=== PATIENT | female | born 1980 | race Caucasian/White ===

== ENCOUNTER → 2016-04-27 | Outpatient (CLI) | payer BC ==
[~2016-04-27] MED LIST: IBUP80TA PO; PERCOCET PO; VITAPRTA PO
--- NOTE | 2016-04-29 11:34 | REP ---
Pain after trauma. Four views of the third digit of the right hand show a fracture of the distal phalanx with associated soft tissue swelling. Signed by Darin Zabala DO 04/29/2016 11:54 A
== END ==
LOC: M ADAMS 13:31
PROVIDERS: ATTEND Physician Assistant Medical
DX: S60.031A Contusion of right middle finger without damage to nail, initial encounter (principal); X58.XXXA Exposure to other specified factors, initial encounter; Y92.89 Other specified places as the place of occurrence of the external cause; Y93.89 Activity, other specified; Y99.8 Other external cause status

== ENCOUNTER 2016-08-31 08:07 | Day surgery (SDC) | payer BC ==
[~2016-08-31] VITALS: Ht 160 cm; Wt 77.3 kg
[2016-08-31] MEDS ORDERED: MORPHINE 4 MG/ML 1ML SYRINGE IV ONE ×2 (08:45→09:30)
[2016-08-31] MEDS ORDERED: ONDANSETRON 4MG/2ML VIAL (J2405) IV ONE (08:45)
[2016-08-31 09:01] LABS: BASO % 0.4 % (0.0-1.0); EOS % 0.5 % (0.0-3.0); LARGE UNSTAINED CELL # 0.2 K/mm3 (0.0-0.4); LARGE UNSTAINED CELL % 1.6 % (0.0-4.0); LYMPH # 1.9 K/mm3 (1.5-4.5); LYMPH % 17.3 % (24.0-44.0); MEAN CORPUSCULAR HEMOGLOBIN 36.7 pg (27.0-33.0); MEAN CORPUSCULAR HGB CONC 34.3 g/dl (32.0-36.5); MONO # 0.5 K/mm3 (0.0-0.8); MONO % 4.3 % (0.0-5.0); NEUTROPHILS # 8.2 K/mm3 (1.8-7.7); NEUTROPHILS % 75.8 % (36.0-66.0); PLATELET COUNT, AUTOMATED 246 k/mm3 (150-450); RED CELL DISTRIBUTION WIDTH 12.5 % (11.5-14.5); WHITE BLOOD COUNT 10.9 K/mm3 (4.0-10.0)
[2016-08-31 09:18] LABS: ANION GAP 10 MEQ/L (8-16); BLOOD UREA NITROGEN 4 MG/DL (7-18); CALCIUM LEVEL 8.2 MG/DL (8.5-10.1); CARBON DIOXIDE LEVEL 22 MEQ/L (21-32); CHLORIDE LEVEL 102 MEQ/L (98-107); CREATININE FOR GFR 0.58 MG/DL (0.55-1.02); GLOMERULAR FILTRATION RATE > 60.0 (>60); GLUCOSE, FASTING 85 MG/DL (70-105); POTASSIUM SERUM 4.1 MEQ/L (3.5-5.1); SODIUM LEVEL 134 MEQ/L (136-145)
[2016-08-31] MEDS ORDERED: VITMTA PO (09:18)
--- NOTE | 2016-08-31 09:57 | REP ---
RIGHT ANKLE, FOUR VIEWS: HISTORY: Trauma. There is a fracture/dislocation. There are fractures of the medial and lateral malleolus. There is lateral dislocation of the talus with respect to the tibia and fibula. Soft tissue swelling is present. IMPRESSION: Fracture/dislocation as described above. Signed by Akin Rocha MD 08/31/2016 10:22 A
[2016-08-31 10:26] LABS: CONTROL LINE HCG INT CTR LINE PRESENT
[2016-08-31] MEDS ORDERED: MORPHINE 2 MG/ML 1ML SYRINGE IV ONE (10:45)
--- NOTE | 2016-08-31 10:45 | REP ---
AP, LATERAL RIGHT ANKLE, TWO VIEWS: HISTORY: Postreduction. COMPARISON: 8:42 a.m. 08/31/2016 An overlying metal splint is present. There is a fracture/dislocation. There are fractures of the medial and lateral malleoli. There is lateral subluxation of the talus with respect to the tibia. IMPRESSION: Fracture dislocation as described above. Signed by Akin Rocha MD 08/31/2016 10:51 A
[2016-08-31] MEDS ORDERED: NS 1,000 ML IV ONE (11:30)
--- NOTE | 2016-08-31 11:38 | HPE ---
DATE OF ADMISSION: 08/31/2016 CHIEF COMPLAINT: Right ankle pain and deformity. HISTORY OF PRESENT ILLNESS: The patient stepped out of her car awkwardly last night around 12:30 or so in the morning with all of her weight on her right ankle, experienced immediate pain and deformity in the right ankle joint. She slept through the night and woke up this morning with severe right ankle pain and presented to the emergency room for evaluation. She has no other active complaints at this time. PAST MEDICAL HISTORY: Denies. PAST SURGICAL HISTORY: sections times five, carpal tunnel release, and gallbladder removal. MEDICATIONS: Multivitamin. ALLERGIES: SHELLFISH. SOCIAL HISTORY: Denies tobacco use. Occasional alcohol usage. Denies any drug abuse. REVIEW OF SYSTEMS: Negative for fevers, chills, nausea, vomiting, diarrhea, constipation, chest pain, or shortness of breath. PHYSICAL EXAMINATION: Awake, alert and oriented times three. Well appearing female in no acute distress. Appropriately dressed and well nourished. HEAD: Normocephalic, atraumatic. Extraocular muscles are intact. CARDIOVASCULAR: Regular rate and rhythm. PULMONARY: No increased work of breathing. EXTREMITIES: Focused examination of the right lower extremity: There is swelling and deformity about the right ankle joint. The skin is intact. There are some small superficial blisters on the anteromedial joint, nonhemorrhagic and overall swelling is not excessive. Distally, she has 2+ dorsalis pulse with less than 2 seconds capillary refill and sensation intact to light touch in all of her toes. Ipsilateral leg, knee and thigh is grossly atraumatic and nontender with the skin intact. Left lower extremity: She has comfortable, pain-free range of motion in the bilateral upper extremities. Cervical range of motion is also full, normal and pain free. Injury films of the right ankle show bimalleolar fracture dislocation. ASSESSMENT: Acute closed right ankle bimalleolar fracture dislocation. PLAN: Gently aligned the extremity, pulling it straight and placed it in a well padded splint, elevating to control swelling. Pain control per the emergency room physician. Risks and benefits of treatment options were discussed at length with the patient and she is electing to go forward with a right ankle open reduction, internal fixation (ORIF) and did sign a surgical consent in my presence. Urinary test is negative. She states that she had a previous tubal ligation and has recently had her menstrual period within the last few days and so we will go forward with surgery, which will be the right ankle open reduction, internal fixation (ORIF) today within the next few hours. I do feel her soft tissues are amenable to going forward with surgery at this time. She is satisfied with the treatment plan.
[2016-08-31] MEDS ORDERED: MIDAZOLAM INJ 2 MG/2 ML VIAL (J2250) As Ordered ONE (12:29)
[2016-08-31] MEDS ORDERED: LIDOCAINE 2% INJ 100 MG/5 ML SDV (FOR ANES.) As Ordered ONE (12:29)
[2016-08-31] MEDS ORDERED: PROPOFOL 200 MG/20 ML VIAL As Ordered ONE ×4 (12:29→14:18)
[2016-08-31] MEDS ORDERED: fentaNYL 100 MCG/2 ML INJECTION (J3010) As Ordered ONE (12:29)
--- NOTE | 2016-08-31 12:43 | REP ---
CT ANKLE WITHOUT CONTRAST: HISTORY: Fracture/dislocation. COMPARISON: Right ankle 08/31/2016. There is a fracture/dislocation. There is a fracture of the medial malleolus. There is lateral displacement of the distal fracture fragment. There is a comminuted fracture of the lateral malleolus. There is lateral dislocation of the talus with respect to the tibia. Diffuse soft tissue swelling is present. IMPRESSION: Fracture/dislocation as described above. Signed by Akin Rocha MD 08/31/2016 12:48 P
[2016-08-31] MEDS ORDERED: ceFAZolin 2 GM/D5W 50 ML IV BAG (J0690) As Ordered ONE (12:46)
[2016-08-31] MEDS ORDERED: BUPIVACAINE/EPIN 0.5% 30 ML VIAL As Ordered ONE (12:48)
[2016-08-31] MEDS ORDERED: COLA100C5 PO (14:47)
[2016-08-31] MEDS ORDERED: OXYC1TAB23 PO ×2 (14:47→14:49)
--- NOTE | 2016-08-31 15:27 | REP ---
RIGHT ANKLE, SEVEN VIEWS: HISTORY: Fracture. COMPARISON: 08/31/2016 Seven portable radiographs were obtained with the C-Arm. The patient is status post ORIF of fractures of the medial and lateral malleoli. A fixation plate and screws are present. There is anatomic alignment. Fluoro time: 39 seconds. IMPRESSION: The patient is status post ORIF of fractures of the medial and lateral malleoli. There is anatomic alignment. Signed by Akin Rocha MD 08/31/2016 03:29 P
[2016-08-31] MEDS ORDERED: HYDROmorphone HCL 1 MG/ML SYRINGE (J1170) IV PRN (15:30)
[2016-08-31] MEDS ORDERED: fentaNYL 100 MCG/2 ML INJECTION (J3010) IV PRN (15:30)
[2016-08-31] MEDS ORDERED: ONDANSETRON 4MG/2ML VIAL (J2405) IV PRN (15:30)
[2016-08-31] MEDS ORDERED: LR 1,000 ML IV SCH (15:30)
[2016-08-31] MEDS ORDERED: PERCOCET 5MG/325MG TAB PO PRN (15:30)
--- NOTE | 2016-08-31 15:42 | RO ---
DATE OF PROCEDURE: 08/31/2016 PREOPERATIVE DIAGNOSIS: Right ankle bimalleolar fracture dislocation. POSTOPERATIVE DIAGNOSIS: Right ankle bimalleolar fracture dislocation. PROCEDURE PERFORMED: Right ankle open reduction internal fixation. PRIMARY SURGEON: Dr. Wesley Oro. ANESTHESIA: Spinal. ESTIMATED BLOOD LOSS: 50 mL. IMPLANTS: [employer] distal fibula locking plate and screws and a single 4.0 cannulated partially threaded screw. MICROFICHE DUPLICATOR: GRACIELA Boucher Assistant. No specimens removed. No blood administered. No complications. TECHNICAL PROCEDURE: The patient was identified in the preoperative holding area by name, medical record number and date of . Surgical site was marked in consultation with patient and she was evaluated by anesthesia. When she was ready, she was brought back to the operative suite on a gurney and transferred to the operating room (OR) table. At this point, spinal anesthesia was induced without complications. Prior to beginning the procedure, a final time-out was performed and all in the room agreed. She was given intravenous (IV) antibiotics prior to the incision. The right lower extremity was sterilely prepped and draped in the usual fashion, with a tourniquet applied to right upper thigh. I began the procedure by exsanguinating the right lower extremity with the esmarch tourniquet, inflating the right upper thigh tourniquet to 250 mmHg. I next established a standard lateral approach to the fibula, dissecting it down to the skin and subcutaneous fat, identified the fracture site, which was somewhat comminuted, with the posterior butterfly fragment. The major fracture fragments were reduced and a single lag screw was passed, achieving a solid fixation at the fracture site. Direct visualization and multiple fluoroscopic views confirmed satisfactory reduction. I next placed an appropriately sized distal fibula locking plate, which was contoured appropriately from [employer]. Next, locking and nonlocking screws were placed above and below, achieving satisfactory fixation on both sides of the fracture. The reduction forceps was removed and by direct visualization and multiple fluoroscopic views in multiple planes, a satisfactory reduction placement of the fibula hardware was appreciated. Next, I turned my attention to the medial malleolus, where I made a curved linear incision centered over the fracture fragment, which was a small 1.5 cm anteromedial piece. The fracture fragment was identified. Torn soft tissue and small, bony fragments were evacuated from the fracture site. It was next reduced in place and secured with a K-wire. Following this, a single 4.0 partially threaded cannulated screw was passed, achieving a satisfactory fixation and compression at the fracture site. No rotation at this time was appreciated. Direct visualization and fluoroscopic views in multiple planes, AP, mortise, oblique and lateral confirmed a satisfactory reduction of the involving fractures and placement of all hardware. Dorsiflexion external rotation stress test, as well as hook test at this time were negative. The mortise did remain stable, indicating a good stability at this time. The wounds were next copiously irrigated and closed in layered sterile dressings and a well-padded L and D splint were applied and tourniquet was deflated and the patient was brought out of anesthesia.
[2016-08-31 17:25] VITALS: BP 110/60
[2016-08-31 19:32] VITALS: BP 124/87
[2016-08-31 22:00] VITALS: BP 134/74
[2016-09-01 00:15] VITALS: BP 137/77
[2016-09-01 04:00] VITALS: BP 138/80
[2016-09-01] MEDS ORDERED: ASPI325T PO (06:47)
[2016-09-01] MEDS ORDERED: MORPHINE 15 MG SA TAB PO ONE (09:00)
== END 2016-09-01 15:15 | disposition home or self-care (01) ==
LOC: M ED 08:07 → M SDC 10:35 → M ED 12:29 → M MS5PR 15:27 → M PED 09-01 00:10 → M SDC 09-01 15:15
DX: S82.841A Displaced bimalleolar fracture of right lower leg, initial encounter for closed fracture (principal); W19.XXXA Unspecified fall, initial encounter; Y92.89 Other specified places as the place of occurrence of the external cause; Y93.89 Activity, other specified; Y99.8 Other external cause status; Z91.013 Allergy to seafood
CPT/HCPCS: 27814; 73600; 73610; 73700; 80048; 81025; 84703; 85025; 86850; 86900; 86901; 96374; 96375; 96376; 97161; 99284; C1776; J0690; J2250; J2405; J3010

== ENCOUNTER → 2017-05-12 | Outpatient (CLI) | payer BC | LOC: M ADAMS 10:47 | DX: M79.642 Pain in left hand (principal) | CPT/HCPCS: 73130 ==

== ENCOUNTER → 2017-07-30 | Outpatient (CLI) | payer BC | LOC: M SMT 13:26 | DX: N92.1 Excessive and frequent menstruation with irregular cycle (principal) ==

== ENCOUNTER → 2017-08-17 | Outpatient (CLI) | payer BC | LOC: M ADAMS 08:42 | DX: M79.645 Pain in left finger(s) (principal) | CPT/HCPCS: 73140 ==

== ENCOUNTER → 2017-09-17 | Outpatient (CLI) | payer BC | LOC: M RAD 12:32 | DX: N85.4 Malposition of uterus (principal) | CPT/HCPCS: 76856 ==

== ENCOUNTER → 2017-10-01 | Outpatient (REF) | payer BC ==
[2017-10-07 10:56] LABS: HPV LOW VOL RFLX Negative (Negative)
== END ==
LOC: M LAB REF 14:33
DX: Z12.4 Encounter for screening for malignant neoplasm of cervix (principal)
CPT/HCPCS: G0123

== ENCOUNTER → 2018-12-15 | Outpatient (REF) | payer BC ==
[~2018-12-15] MED LIST changes: +ASPI-1 PO; +COLA100C5 PO; +OXYC1TAB23 PO; +VITMTA PO
[2018-12-15 13:37] LABS: BASO # 0.1 10^3/uL (0.0-0.2); EOS # 0.2 10^3/uL (0.0-0.5); EOS % 3.2 % (0.0-3.0); HEMATOCRIT 41.5 % (36.0-47.0); HEMOGLOBIN 14.1 g/dl (12.0-15.5); LYMPH # 1.4 10^3/uL (1.5-5.0); MEAN CORPUSCULAR HEMOGLOBIN 37.2 pg (27.0-33.0); MEAN CORPUSCULAR VOLUME 109.5 fl (80.0-96.0); MONO # 0.4 10^3/uL (0.0-0.8); MONO % 7.4 % (0.0-5.0); NEUTROPHILS % 59.8 % (36.0-66.0); PLATELET COUNT, AUTOMATED 184 10^3/uL (150-450); RED BLOOD COUNT 3.79 10^6/uL (4.00-5.40)
[2018-12-15 13:50] LABS: ALBUMIN 4.2 GM/DL (3.2-5.2); ALT/SGPT 61 U/L (12-78); BILIRUBIN,TOTAL 0.3 MG/DL (0.2-1.0); BLOOD UREA NITROGEN 3 MG/DL (7-18); CALCIUM LEVEL 9.5 MG/DL (8.5-10.1); CARBON DIOXIDE LEVEL 29 MEQ/L (21-32); CHLORIDE LEVEL 99 MEQ/L (98-107); CHOLESTEROL LEVEL 263 MG/DL (<200); CHOLESTEROL RISK RATIO 3.554 (<5); CREATININE FOR GFR 0.56 MG/DL (0.55-1.30); FERRITIN 137 NG/ML (8-252); GLOMERULAR FILTRATION RATE > 60.0 (>60); GLUCOSE, FASTING 100 MG/DL (70-100); HDL CHOLESTEROL 74 MG/DL (>40); IRON (FE) 90 UG/DL (50-170); LDL CHOLESTEROL 158 MG/DL (<100); NON-HDL-C 189 MG/DL; SODIUM LEVEL 134 MEQ/L (136-145); TOTAL PROTEIN 7.8 GM/DL (6.4-8.2); TRIGLYCERIDES LEVEL 153 MG/DL (<150)
[2018-12-15 13:54] LABS: TOTAL T3 87.3 NG/DL (60.0-181.0)
[2018-12-15 13:56] LABS: TOTAL 25(OH) VITAMIN D 38.8 NG/ML (30.0-100.0)
[2018-12-16 13:06] LABS: FOLATE 20.5 NG/ML; VITAMIN B12 LEVEL 785 PG/ML
== END ==
LOC: M LABDRWAD 12:30
PROVIDERS: ATTEND Family Medicine
DX: D50.9 Iron deficiency anemia, unspecified (principal); E78.00 Pure hypercholesterolemia, unspecified; E55.9 Vitamin D deficiency, unspecified

== ENCOUNTER → 2020-01-05 | Outpatient (CLI) | payer BC | LOC: M LABSMTC 12:58 | PROVIDERS: ATTEND Orthopaedic Surgery | DX: Z01.812 Encounter for preprocedural laboratory examination (principal); Z20.828 Contact with and (suspected) exposure to other viral communicable diseases ==

== ENCOUNTER → 2020-10-01 | Outpatient (REF) | payer BC ==
[2020-10-01 13:26] LABS: BASO # 0.1 10^3/uL (0.0-0.2); BASO % 1.3 % (0.0-1.0); EOS # 0.2 10^3/uL (0.0-0.5); EOS % 3.3 % (0.0-3.0); HEMATOCRIT 34.4 % (36.0-47.0); HEMOGLOBIN 12.1 g/dl (12.0-15.5); LYMPH # 1.3 10^3/uL (1.5-5.0); LYMPH % 29.3 % (24.0-44.0); MEAN CORPUSCULAR HEMOGLOBIN 37.5 pg (27.0-33.0); MEAN CORPUSCULAR HGB CONC 35.2 g/dl (32.0-36.5); MEAN CORPUSCULAR VOLUME 106.5 fl (80.0-96.0); MONO # 0.3 10^3/uL (0.0-0.8); MONO % 6.8 % (2.0-8.0); NEUTROPHILS # 2.7 10^3/uL (1.5-8.5); NEUTROPHILS % 58.6 % (36.0-66.0); PLATELET COUNT, AUTOMATED 110 10^3/uL (150-450); RED BLOOD COUNT 3.23 10^6/uL (4.00-5.40); WHITE BLOOD COUNT 4.6 10^3/uL (4.0-10.0)
[2020-10-01 13:32] LABS: C REACTIVE PROTEIN QUANTITATIV < 0.30 MG/DL (0.00-0.30); RHEUMATOID FACTOR QUANT < 10.0 IU/ML (<15.0)
[2020-10-01 13:54] LABS: ERYTHROCYTE SEDIMENTATION RATE 30 mm/hr (0-20)
[2020-10-02 13:08] LABS: ANTINUCLEAR ANTIBODIES DIRECT Negative (Negative)
== END ==
LOC: M LABDRWAD 12:49
PROVIDERS: ATTEND Orthopaedic Surgery
DX: M65.842 Other synovitis and tenosynovitis, left hand (principal)

== ENCOUNTER → 2021-01-24 | Outpatient (CLI) | payer BC ==
--- NOTE | 2021-01-24 08:12 | REP ---
INDICATION: HEPATIC LIVER/ ELEVATED LFT COMPARISON: None. TECHNIQUE: Real time solomon scale ultrasound examination using curved array transducer. FINDINGS: Liver and pancreas are normal in contour, size, and echogenicity without focal hepatic or pancreatic lesions identified. The gallbladder is surgically absent. No biliary ductal dilatation is appreciated and the common bile duct measures 6.1 mm diameter. Right kidney is normal in reniform shape without hydronephrosis and measures 11.1 x 7.0 x 4.6 cm. No ascites in the visualized right upper quadrant. Visualized portions of the abdominal aorta appear normal. IMPRESSION: Normal limited right upper quadrant ultrasound <Electronically signed by Raz Mckay > 01/24/21 0815
== END ==
LOC: M RAD 07:29
PROVIDERS: ATTEND Family Medicine
DX: R74.01 Elevation of levels of liver transaminase levels (principal)